=== PATIENT | female | born 1985 | race Caucasian/White ===

== ENCOUNTER 2018-05-06 05:53 | Day surgery (SDC) | payer OTHER ==
--- NOTE | 2018-04-30 10:09 | HP ---
CC: Dr. Tony Richter * HISTORY AND PHYSICAL: DATE OF PLANNED ADMISSION AND SURGERY: 05/06/18 HISTORY OF PRESENT ILLNESS: Ms. Crain is a 33-year-old white female who is admitted with a 1 cm calculus at the right ureteropelvic junction for cystoscopy and placement of right ureteral stent. Ms. Crain's history goes back to about 4 months ago when she started having episodes of right flank pain. At that time, she was worked up at Dr. Richter's office and had a renal ultrasound, which showed a calculus in the lower pole infundibulum of the right kidney. There was no associated hydronephrosis and no other abnormalities noted. The patient was managed conservatively. She presented to the emergency room on 04/18/18 with symptoms of right renal colic. She did not have associated fever or chills. She was worked up in the ER with a non contrast CT of the abdomen and pelvis. The study showed a 1 cm minimally obstructing calculus at the right ureteropelvic junction. There was no associated urinary tract infection, and her pain was controlled with oral pain medications. The patient was discharged home on Percocet as needed for pain and referred to our office for further management. Past history is relevant for an episode of left renal colic that occurred 3 years ago. At that time, she passed a left ureteral calculus spontaneously. On her imaging at that time, she was noted to have a nonobstructing samll calculus in the right kidney. She has done well until the recent episode. The patient denies any episodes of gross hematuria, urinary tract infections, or any voiding symptoms. PAST MEDICAL HISTORY AND SYSTEM REVIEW: She is morbidly obese, weighing 320 pounds. She is not diabetic and not hypertensive. She denies any significant medical problems. MEDICATIONS: She is on no chronic medications. ALLERGIES: Denies any allergies to medications. SECURITY ASSURANCE SPECIALIST HISTORY: Negative. She has not had any children. No SECURITY ASSURANCE SPECIALIST surgery. PERSONAL HISTORY: She is a nonsmoker. She has no allergies to medications. FAMILY HISTORY: Is relevant for a renal calculus disease in her brother. PHYSICAL EXAM: GENERAL: Morbidly obese white female who otherwise looks healthy. VITAL SIGNS: Blood pressure 126/80, pulse of 90. LUNGS: Clear. HEART: Regular and rhythmic. No murmurs. ABDOMEN: Soft without any masses and no CVA tenderness. DIAGNOSTIC STUDIES: The patient had a KUB at her visit to my office and the x- ray showed a 1 cm radiopaque calculus at the level of the right ureteropelvic junction. IMPRESSION: 1. Minimally obstructing 1 cm calculus at the right ureteropelvic junction. 2. Morbid obesity. PLAN: 1. Cystoscopy and placement of right ureteral stent. 2. Following the stent placement and after allowing for the passive dilatation of the ureter from the stent, the patient will be brought back a week later for shockwave lithotripsy of the right renal calculus with possible removal of the right ureteral stent if good fragmentation is achieved. I discussed the above plans in detail with the patient. All her questions were answered. [id number]/[facility] #: [id number] CAT
[2018-05-06] MEDS ORDERED: Buffered Lidocaine 0.9% SYRIN* 5 ML/SYR SYRINGE INTRADERM ONE (06:00)
[2018-05-06] MEDS ORDERED: cefTRIAXone(*) 2 GM ADDV.VIAL IVPB ONE (06:56)
[2018-05-06] MEDS ORDERED: Iohexol 180 (CONTRAST) 10 ML SDV IV ONE (07:17)
[2018-05-06] MEDS ORDERED: Midazolam* 1 MG/ML 5 ML VIAL (5 MG) ONE ×2 (07:35→07:47)
[2018-05-06] MEDS ORDERED: fentaNYL* 50 MCG/ML 2 ML VIAL (100 MCG VIAL) ONE (07:42)
[2018-05-06] MEDS ORDERED: Dexamethasone IV* 4 MG/ML 1 ML (4 MG) ONE (07:48)
[2018-05-06] MEDS ORDERED: Naloxone* 0.4 MG/ML 1 ML VIAL IV PRN (07:56)
[2018-05-06] MEDS ORDERED: fentaNYL* 50 MCG/ML 2 ML VIAL (100 MCG VIAL) IV PRN (07:56)
[2018-05-06] MEDS ORDERED: Ondansetron INJ* 2 MG/ML VIAL IV PRN (07:56)
[2018-05-06] MEDS ORDERED: Ondansetron INJ* 2 MG/ML VIAL ONE (08:02)
[2018-05-06 08:49] VITALS: BP 120/93
--- NOTE | 2018-05-06 11:11 | OP ---
DATE OF OPERATION: 05/06/18 - [facility] DATE OF : 89 SURGEON: Dr. Gentile. ANESTHESIOLOGIST: Dr. Azul. ANESTHESIA: IV sedation with MAC. PRE-OP DIAGNOSIS: Right renal calculus (1 cm, UPJ level). POST-OP DIAGNOSES: 1. Right renal calculus (1 cm, UPJ level). 2. Right hydronephrosis. OPERATIVE PROCEDURE: 1. Cystoscopy. 2. Right retrograde pyelography and placement of right ureteral stent (6-Indonesian ). INDICATION FOR PROCEDURE: Ms. Crain is a 33-year-old white female who had an episode of right renal colic one month ago, requiring a visit to the emergency room. At that time, her CT showed a 1 cm calculus at the right uretero-pelvic junction associated with mild right hydronephrosis. KUB confirmed the presence of radiopaque calculus at the right UPJ level. The patient has been having on and off episodes of mild right flank pain. She is admitted for right ureteral stent placement in preparation for definitive treatment of the stone. PATHOLOGY AT CYSTOSCOPY: The bladder mucosa looked normal. There were no suspicious bladder lesions seen. The ureteral orifices looked normal. At fluoroscopy, a 1-cm radiopaque calculus was noted at the level of the right ureteropelvic junction. Upon right retrograde pyelography, there was mild-to- moderate right hydronephrosis. DESCRIPTION OF PROCEDURE: With the patient in the dorsal lithotomy position and under intravenous sedation with anesthesia monitoring, cystoscopy was performed. The bladder was carefully inspected and the above findings were noted. A hybrid wire was then introduced into the right orifice and positioned proximal to the stone in the renal pelvis. Retrograde pyelography was then performed demonstrating the above pathology. A size 6-Indonesian stent was then placed with the proximal end coiling in the renal pelvis and the distal end coiling inside the bladder. Final fluoroscopy showed the stone to be still at the ureteropelvic junction. No extravasation was noted. The patient tolerated the procedure well and left the operating room in good condition. The plan is to bring the patient back next week for shockwave lithotripsy of the renal calculus and if there is good fragmentation, for stent removal. [id number]/[facility] #: [id number] [facility]
== END 2018-05-06 09:07 | disposition home or self-care (01) ==
LOC: OR 05:53
PROVIDERS: ATTEND Urology
DX: N13.2 Hydronephrosis with renal and ureteral calculous obstruction (principal); E66.01 Morbid (severe) obesity due to excess calories
CPT/HCPCS: 74420; 81025; C1876; J0696; J1100; J2250; J2405; J3010

== ENCOUNTER 2018-05-13 05:32 | Day surgery (SDC) | payer OTHER ==
[2018-05-13] MEDS ORDERED: Buffered Lidocaine 0.9% SYRIN* 5 ML/SYR SYRINGE INTRADERM ONE (06:00)
[2018-05-13] MEDS ORDERED: Lactated Ringers 1000 ML Bag* 1,000 ML IV SCH (06:00)
[2018-05-13] MEDS ORDERED: Sodium Citrate/Citric Acid* 15 ML UDC PO ONE (06:00)
[2018-05-13] MEDS ORDERED: Sodium Citrate/Citric Acid* 15 ML UDC ONE (06:17)
[2018-05-13] MEDS ORDERED: cefTRIAXone(*) 2 GM ADDV.VIAL IVPB ONE (06:17)
[2018-05-13] MEDS ORDERED: Ondansetron INJ* 2 MG/ML VIAL IV PRN (07:24)
[2018-05-13] MEDS ORDERED: fentaNYL* 50 MCG/ML 2 ML VIAL (100 MCG VIAL) IV PRN (07:24)
[2018-05-13] MEDS ORDERED: Propofol* 10 MG/ML 20 ML BTL ONE ×2 (07:39→08:03)
[2018-05-13] MEDS ORDERED: Lidocaine 2% PF * 5 ML VIAL ONE (08:04)
[2018-05-13] MEDS ORDERED: Ondansetron INJ* 2 MG/ML VIAL ONE (09:23)
[2018-05-13] MEDS ORDERED: Acetaminophen TAB* 325 MG ONE (09:32)
[2018-05-13] MEDS ORDERED: DiMENhydriNATE IV* 50 MG/ML VIAL ONE (10:12)
--- NOTE | 2018-05-13 10:20 | OP ---
CC: Dr. Tony Richter* DATE OF OPERATION: 05/13/18 - [facility] DATE OF : [birth year] SURGEON: Paolo Gentile MD ANESTHESIOLOGIST: Dr. Lico Bates. ANESTHESIA: General. PRE-OP DIAGNOSES: 1. Right renal calculus (1 cm). 2. Status post placement, right ureteral stent. POST-OP DIAGNOSES: 1. Right renal calculus (1 cm). 2. Status post placement, right ureteral stent. OPERATIVE PROCEDURE: Shockwave lithotripsy of right renal calculus (UPJ level). INDICATIONS FOR PROCEDURE: Ms. Crain is a 33-year-old white female who presented with recurrent episodes of right renal colic and was found to have a 1 cm calculus at the right ureteropelvic junction. One week ago, she underwent urgent cystoscopy and placement of a right ureteral stent. Postoperative KUB showed the stent in good position and the 1 cm radiopaque calculus at the level of the ureteropelvic junction. The patient is admitted for a definitive treatment of the stone. PATHOLOGY: Preoperative KUB showed the right ureteral stent in good position and 1 cm radiopaque calculus at the ureteropelvic junction. DESCRIPTION OF PROCEDURE: After successful general anesthesia, the patient was placed in the supine position on the shockwave lithotripsy table. The right renal calculus was visualized in both the PA and oblique x-ray views and the position of the generator and of the patient were adjusted to have the stones in the focus of the shockwaves. A total of 2,400 shocks were then delivered at a rate of 60 shocks per minute. The proper positioning and fragmentation of the stone were monitored periodically. A 2-minute break was taken after the initial 300 shocks to decrease the risk of renal injury. At the completion of the treatment, there seemed to be good fragmentation of the stone. Because of the position of the calculus at the ureteropelvic junction and the expected edema of the ureteral wall from the shockwave lithotripsy, it was decided not to remove the stent at this time. The patient tolerated the procedure well and left the operating room in good condition. The plan is to obtain a KUB before here discharge. If it confirms good fragmentation of the stone, the stent will be removed in the office next week. [id number]/[facility] #: [id number] [facility]
[2018-05-13 10:38] VITALS: BP 107/77
--- NOTE | 2018-05-23 17:38 | HP ---
HISTORY AND PHYSICAL: DATE OF ADMISSION: 05/13/18 INTERVAL HISTORY NOTE: Ms. Crain is a 33-year-old white female who is admitted with right renal calculus, status post placement of right ureteral stent for shockwave lithotripsy of the right renal calculus and possible cystoscopy and removal of the right ureteral stent. Please refer to my history and physical for her admission on 05/13/18. Ms. Crain developed right renal colic and was noted on workup including a CT and KUB to have a 1-cm partially obstructing calculus at the right ureteropelvic junction. She was taken to the operating room on 05/13/18 and had placement of right ureteral stent. Please refer to my history and physical for that admission. The patient did very well postoperatively. Postoperative KUB showed the right ureteral stent in good position and the 1-cm calculus at the level of the right ureteropelvic junction. The patient now is admitted for shockwave lithotripsy of that calculus and removal of the right ureteral stent. There has not been any changes in her medical condition or her medications or her physical exam since the recent admission. The above plans were discussed in detail with the patient. All her questions were answered. [id number]/[facility] #: [id number] CAT
== END 2018-05-13 10:50 | disposition home or self-care (01) ==
LOC: OR 05:32
PROVIDERS: ATTEND Urology
DX: N20.0 Calculus of kidney (principal); Z68.43 Body mass index [BMI] 50.0-59.9, adult
CPT/HCPCS: 74018; 81025; A9270-GY; J0696; J1240; J2405; J2704

== ENCOUNTER → 2018-12-16 13:34 | Day surgery (SDC) | payer BC ==
[~2018-12-16 13:34] MED LIST: Buffered Lidocaine 1% SYRIN* 1 ML/SYRINGE INTRADERM ONE; Dexamethasone IV* 4 MG/ML 1 ML (4 MG) ONE; Gentamicin ADULT (*) 160 MG in NS 0.9% 100 ML* 100 ML IVPB ONE; HYDROmorphone INJ* 0.5 MG/0.5 ML SYRINGE ONE; Iohexol 180 (CONTRAST) 10 ML SDV IV ONE; KETAMINE HCL* 50 MG/ML 10 ML VIAL ONE; Ketorolac INJ* 30 MG/ML 1 ML VIAL ONE; Lidocaine 2% PF * 5 ML VIAL ONE; Midazolam* 1 MG/ML 2 ML VIAL (2 MG) ONE; Midazolam* 1 MG/ML 5 ML VIAL (5 MG) ONE; Naloxone* 0.4 MG/ML 1 ML VIAL IV PRN; Ondansetron INJ* 2 MG/ML VIAL IV PRN; Ondansetron INJ* 2 MG/ML VIAL ONE; Propofol* 10 MG/ML 20 ML BTL ONE; Scopolamine 1.5 mg* PATCH ONE; Scopolamine PATCH Remove* 1 NOTE MISC PATCH OFF ONE; cefTRIAXone(*) 2 GM ADDV.VIAL IVPB ONE; fentaNYL* 50 MCG/ML 2 ML VIAL (100 MCG VIAL) IV PRN; fentaNYL* 50 MCG/ML 2 ML VIAL (100 MCG VIAL) ONE; oxyCODONE/Acetamin 5/325 MG* TAB PO PRN
[2018-12-16 14:10] VITALS: BP 118/91
--- NOTE | 2018-12-16 15:58 | HP ---
CC: Dr. Tony Richter DATE OF ADMISSION: 12/16/2018. AGE: 33-year-old female. ADMITTING DIAGNOSES: 1. Right hydronephrosis. 2. Large obstructing calculus right ureteropelvic junction. PLANNED PROCEDURE: Right stent insertion (to be followed in the near future by shockwave lithotripsy ). SURGEON: Dr. David Guzman. HISTORY OF PRESENT ILLNESS: Angelina Crain is a 33-year-old lady with a history of recurrent renal [place] culi who had been evaluated in the office earlier for right flank pain, nausea, and vomiting. She wa s noted to have evidence of a complete obstruction of the right ureter secondary to a 1 cm calculus a t the right ureteropelvic junction with significant perinephric extravasation. She is being brought in for urgent right stent insertion to be followed in the near future by lithotripsy. PAST MEDICAL HISTORY: Significant for renal calculi. PAST SURGICAL HISTORY: Significant for right stent insertion and lithotripsy in May. MEDICATIONS ON ADMISSION: None. ALLERGIES: No known drug allergies. FAMILY HISTORY: Negative for stones. SOCIAL HISTORY: She is a nonsmoker. REVIEW OF SYSTEMS: She is otherwise in excellent health. There is no history of diabetes mellitus o r any other major systemic illness. She denies any chest pain or shortness of breath. PHYSICAL EXAMINATION GENERAL: Pleasant, uncomfortable-appearing lady. VITAL SIGNS: Blood pressure 118/91, pulse 84 per minute and regular, temperature 36.5, oxygen satura tion 97 percent on room air. CARDIOVASCULAR: Regular rate and rhythm, S1, S2. LUNGS: Clear bilaterally. ABDOMEN: Soft with right flank tenderness. IMPRESSION: [id number]-old lady with obstructing calculus in the right ureteropelvic junction causing complete obstruction of the right ureter. PLAN: Plan today is right stent insertion to be followed in the near future by lithotripsy. [id number]/[facility] #: [id number]
--- NOTE | 2018-12-17 00:19 | OP ---
CC: Dr. Tony Richter * DATE OF OPERATION: 12/16/18 - [facility] DATE OF : 89 SURGEON: Dr. Guzman. ANESTHESIOLOGIST: Dr. Interiano. ANESTHESIA: Intravenous sedation. PRE-OP DIAGNOSES: 1. Right hydronephrosis. 2. Obstructing calculus, right ureteropelvic junction. POST-OP DIAGNOSES: 1. Right hydronephrosis. 2. Obstructing calculus, right ureteropelvic junction. OPERATIVE PROCEDURE: Cystoscopy, right retrograde pyelogram, right ureteral calculus manipulation, and right stent insertion. COMPLICATIONS: None. STENT USED: A 7-Slovenian stent, right ureter. OPERATIVE FINDINGS: Fairly large (10-12 mm) calculus right ureteropelvic junction with right hydronephrosis. POSTOPERATIVE CONDITION: Stable. INDICATIONS: Angelina Crain is a 33-year-old lady with a history of recurrent renal calculi. She was evaluated earlier in the office for flank pain, nausea and vomiting and noted to have a large obstructing calculus at the right ureteropelvic junction. She is being brought in for urgent right stent insertion to be followed in the near future by lithotripsy. DESCRIPTION OF PROCEDURE: After induction of intravenous sedation, the patient was placed in dorsal lithotomy position. Sequential compression devices were in place and functioning. Initial cystoscopy revealed a normal appearing bladder. There was clear efflux noted from the left orifice. There was no efflux noted from the right orifice suggesting a complete obstruction. Guidewire was introduced into the right ureter. Retrograde pyelogram revealed a large radiopaque calculus in the area of the ureteropelvic junction with right hydronephrosis. The open-ended catheter was advanced to the level of the ureteropelvic junction and the calculus was carefully manipulated slightly proximally. Once this was done, there was significant drainage of urine noted from the right ureter. A 7-Slovenian stent was introduced and positioned under fluoroscopy with good proximal and distal positioning obtained. The bladder was emptied. The patient tolerated the procedure satisfactorily and was transferred back to the recovery area in stable condition. [id number]/[facility] #: [id number] [facility]
== END | disposition home or self-care (01) ==
LOC: OR 13:34
PROVIDERS: ATTEND Urology
DX: N13.2 Hydronephrosis with renal and ureteral calculous obstruction (principal)
CPT/HCPCS: 76000; 81025; A9270-GY; C1876; J0696; J1100; J1170; J1580; J1885; J2250; J2405; J2704; J3010

== ENCOUNTER → 2018-12-23 05:31 | Day surgery (SDC) | payer BC ==
--- NOTE | 2018-12-20 11:06 | HP ---
cc: Dr. Tony Richter HISTORY AND PHYSICAL: DATE OF PLANNED ADMISSION/SURGERY: 12/23/18 HISTORY OF PRESENT ILLNESS: Mrs. Crain is a 33-year-old white female who is admitted with a right renal calculus, status post placement of right ureteral stent for cystoscopy, right ureteroscopy and laser lithotripsy with right ureteral stent exchange and possible shockwave lithotripsy of right renal calculus. Mrs. Crain is a known stone former and she had presented in April 2018 with a 1 cm calculus at the right ureteropelvic junction. At that time, she had placement of a right ureteral stent and underwent shockwave lithotripsy of the right renal calculus. Postoperative KUB showed good fragmentation of the stone. The stent was then removed and she passed a fair amount of stone fragments, and the stone analysis showed them to be a combination of calcium phosphate and calcium oxalate. The patient had a renal ultrasound 1 month postoperatively and there was only a residual 5 mm calculus in the lower pole calyx of the right kidney. The patient continued to do fine until last week when she presented with symptoms of right renal colic. Workup showed a 1.5 cm calculus at the right ureteropelvic junction associated with hydronephrosis and stranding around the right kidney. She was taken urgently to the operating room on 12/16/18 and had placement of right ureteral stent. Postoperative KUB and renal ultrasound showed resolution of the hydronephrosis, the proximal loop of the stent was noted in the upper pole calyx of the right kidney and there was a 1.7 cm dense calculus in the renal pelvis. Because of the above findings, the patient is admitted for the above procedure. PAST MEDICAL HISTORY: The patient is morbidly obese, weighing about 320 pounds. She is, otherwise, in very good health. She is not diabetic or hypertensive and has no significant medical problems. IRONWORKER FOREMAN HISTORY: Negative. MEDICATIONS: She is on no chronic medications. ALLERGIES: She denies any allergies to medications. FAMILY HISTORY: Relevant for renal calculus disease in her brother. SOCIAL HISTORY: She is a nonsmoker, no recreational drug use. PHYSICAL EXAMINATION GENERAL: Pleasant, morbidly obese white female who, otherwise, looks healthy. VITAL SIGNS: Blood pressure 130/80, pulse of 70. LUNGS: Clear. HEART: Regular and rhythmic, no murmurs. ABDOMEN: Soft. No tenderness. EXTREMITIES: Show no edema. IMPRESSION: A 1.7 cm dense calculus in the right renal pelvis, status post placement of right ureteral stent. The stone has grown significantly in size over the last 7 months. PLAN/RECOMMENDATIONS: Ideally, the patient would be a candidate for percutaneous lithotripsy. Considering her morbid obesity and the fact that her right collecting system is not dilated, this procedure would be difficult and carry more potential complications. The plan is to proceed with a right ureteroscopy and laser lithotripsy of the right renal calculus. Will have the shockwave lithotripsy available in case she needs additional shockwave of the residual fragments or if the stone migrates into the lower pole calyx of the kidney during the procedure. The patient will mostly require a staged procedure to render her stone-free. The patient will then require a full metabolic stone workup to prevent stone from recurring. I discussed the above plans in detail with the patient. Some of the potential complications including hematuria, ureteral stricture, and residual stone disease were discussed. All her questions were answered. [id number]/[facility] #: [id number] [facility]
[~2018-12-23 05:31] MED LIST changes: +DiMENhydriNATE IV* 50 MG/ML VIAL ONE; +Famotidine IV* 10 MG/ML 2 ML (20 mg) IV ONE; +Famotidine IV* 10 MG/ML 2 ML (20 mg) ONE; -Gentamicin ADULT (*) 160 MG in NS 0.9% 100 ML* 100 ML IVPB ONE; -HYDROmorphone INJ* 0.5 MG/0.5 ML SYRINGE ONE; +Lactated Ringers 1000 ML Bag* 1,000 ML IV SCH; -Midazolam* 1 MG/ML 2 ML VIAL (2 MG) ONE; +Scopolamine 1.5 mg* PATCH TRANSDERM PRN; +oxyCODONE/Acetamin 5/325 MG* TAB ONE
[2018-12-23 10:45] VITALS: BP 121/79
--- NOTE | 2018-12-23 11:16 | OP ---
CC: Dr. Tony Richter * DATE OF OPERATION: 12/23/18 - [facility] DATE OF : [birth year] SURGEON: Dr. Gentile. ANESTHESIOLOGIST: Dr. Luc Interiano. ANESTHESIA: General. PRE-OP DIAGNOSES: 1. Right renal calculus (1.7 cm). 2. Status post placement of right ureteral stent. POST-OP DIAGNOSES: 1. Right renal calculus (1.7 cm). 2. Status post placement of right ureteral stent. OPERATIVE PROCEDURES: 1. Cystoscopy. 2. Right ureteroscopy and pyeloscopy. 3. Laser lithotripsy of right renal calculus. 4. Right retrograde pyelography and right ureteral stent exchange (7-Mexican) 5. Shockwave lithotripsy of right renal calculus. INDICATION FOR PROCEDURE: Mrs. Crain is a 33-year-old white female who had urgent placement of a right ureteral stent about 1 week ago for a 1.7 cm calculus at the right ureteropelvic junction. Postoperative KUB showed radiopaque calculus in the right renal pelvis. The patient is admitted for the above procedure. PATHOLOGY AT CYSTOSCOPY: The distal limb of the stent was seen coming from the right ureteral orifice. There was the expected edema of the ureteral mucosa from the stent. No bladder lesions were seen. Fluoroscopy showed the right ureteral stent in good position and radiopaque calculus in the area of the renal pelvis. Upon right ureteroscopy and pyeloscopy, a calculus that had grayish appearance was noted in the area of the renal pelvis. No other abnormalities were noted. DESCRIPTION OF PROCEDURE: After successful general anesthesia, the patient was placed in the lithotomy position. Care was taken to have her legs well padded and no pressure on the popliteal fossa. The patient was then prepped and draped for a cystoscopy. Cystoscopy was performed. The bladder was inspected and the above findings were noted. The right ureteral stent was pulled out to the level of the urethral meatus. A flexible tip guidewire was introduced through the lumen of the stent and positioned in the area of the renal pelvis. The stent was removed, keeping the guidewire in place. A 6.5 semi-rigid tapered ureteroscope was then introduced inside the bladder and inside the right ureter alongside the guidewire. The scope was introduced all the way to the level of the ureteropelvic junction, but it could not be safely negotiated inside the renal pelvis. The semi-rigid ureteroscope was then removed. A decision was made to proceed with a flexible ureteroscopy. A 12 -14 Mexican access sheath was then fed on top of the guidewire and the guidewire was removed. The flexible ureteroscope was then introduced inside the access sheath and was passed without difficulty inside the renal pelvis. The calculus was identified. Using the 200 micron laser fiber and later on the 365 micron laser fiber, the stone was fractured. Towards the end of the lasering there was some increasing difficulty visualizing the calculus because it moved within the renal pelvis and the mid pole calyx. At that point, it was decided to proceed with the planned shockwave lithotripsy. It was felt that the stone had been internally fractured enough that the shockwave lithotripsy should be successful. A right retrograde pyelography was then performed, demonstrating moderately dilated collecting system, but no evidence of any extravasation. A size 7- Mexican stent was placed. The patient was then placed in the supine position on the shockwave lithotripsy table. The right renal calculus was visualized in both the PA and oblique x- ray views. The position of the generator and of the patient were adjusted to have the calculus in the focus of the shockwaves. A total of 2400 shocks were then delivered at a rate of 60 shocks per minute. A 3-minutes break was taken after the initial 200 shocks. The proper positioning and fragmentation of the stone were monitored periodically. At the completion of the treatment, there was excellent fragmentation of the stone, which could not be visualized anymore, basically becoming like powder within the mid and lower pole calyces. The patient tolerated the procedure well and left the operating room in good condition. The plan is to obtain a KUB before the patient's discharge. She will be seen in the office in 7 to 10 days and the stent will be removed and I expect all the stone fragments to pass spontaneously. [id number]/[facility] #: [id number] CAT
== END | disposition home or self-care (01) ==
LOC: OR 05:31
PROVIDERS: ATTEND Urology
DX: N20.0 Calculus of kidney (principal); E66.01 Morbid (severe) obesity due to excess calories
CPT/HCPCS: 74018; A9270-GY; C1876; J0696; J1100; J1240; J1885; J2250; J2405; J2704; J3010